=== PATIENT | female | born 1965 | race Caucasian/White ===

== ENCOUNTER → 2016-05-17 | Outpatient (CLI) | payer OTHER ==
[~2016-05-17] VITALS: Ht 157.5 cm; Wt 90.7 kg
[~2016-05-17] MED LIST: ALEVE220 MG PO; ALLEGRA60 MG PO; COMBIVENT RESPIM4 GM IH; FLONASE16 G1 BOTH NARES; MEDROL DOSEPAK4 MG PO; OCELLA TABLET1 EACH PO; ROBITUSSIN AC,T10 ML PO; TESSALON PERLE100 MG PO; VITAMIN D-32000 UNI1 PO
== END | disposition home or self-care (01) ==
LOC: AMB 11:15
PROC: 0DBE8ZZ Excision of Large Intestine, Via Natural or Artificial Opening Endoscopic (ICD-10-PCS; principal; 2016-05-17)
DX: R10.31 Right lower quadrant pain (principal); D12.2 Benign neoplasm of ascending colon; D12.0 Benign neoplasm of cecum; K21.9 Gastro-esophageal reflux disease without esophagitis
CPT/HCPCS: 88305; J2250